=== PATIENT | female | born 1975 | race Caucasian/White ===

== ENCOUNTER 2018-06-12 02:47 | Emergency (ER) | payer BC ==
[~2018-06-12] VITALS: Ht 167.6 cm; Wt 71.7 kg
[2018-06-12 03:11] VITALS: BP 109/70
[2018-06-12] MEDS ORDERED: PSEUDOEPHEDRINE60 MG PO (03:15)
[2018-06-12] MEDS ORDERED: AMOXICILLIN500 MG ORAL (03:15)
--- NOTE | 2018-06-12 03:15 | Emergency Room Report ---
History of Present Illness General Chief Complaint: Earache Source: Patient Present Illness HPI Is a 43-year-old female with no past medical history. She presents with left ear pain. She thought that a bug may have flew into her ear. Around 6 PM she felt something hit her ear. She have any issue until one to 2 AM when she woke with left ear pain. No cough or congestion. No fever chills but denies any other complaint. Pain is 7 out of 10. Nothing made it better. Nothing made it worse. Allergies: Coded Allergies: No Known Allergies (Unverified , 06/12/18) Patient History Past Medical History: see triage record, old chart reviewed Past Surgical History: none Pertinent Family History: none Social History: Denies: smoking Last Menstrual Period: 3 weeks ago Now: No Immunizations: other Reviewed Nursing Documentation: PMH: Agreed; PSxH: Agreed Nursing Documentation-PMH Past Medical History: No Stated History Review of Systems Eye: Denies: eye pain, blurred vision ENT: Reports: ear pain; Denies: nose congestion, throat swelling Respiratory: Denies: cough, shortness of breath Cardiovascular: Denies: chest pain, palpitations Gastrointestinal: Denies: abdominal pain, diarrhea, nausea, vomiting Musculoskeletal: Denies: back pain, joint pain Skin: Denies: rash Neurological: Denies: headache, numbness Endocrine: Denies: increased thirst, increased urine Hematologic/Lymphatic: Denies: easy bruising All Other Systems: negative except mentioned in HPI Physical Exam Vital Signs Date Time Temp Pulse Resp B/P (MAP) Pulse Ox O2 Delivery O2 Flow Rate FiO2 06/12/18 03:03 98.2 76 16 109/70 97 Room Air vitals normal Sp02 EP Interpretation: reviewed, normal General Appearance: well appearing, no apparent distress, alert Head: normocephalic, atraumatic Eyes: bilateral eye PERRL, bilateral eye EOMI ENT: hearing grossly normal, normal pharynx, other - Left ear: TM is bulging with effusion. No bugs or foreign delfina Neck: full range of motion, supple, no meningismus Respiratory: chest non-tender, lungs clear, normal breath sounds Cardiovascular #1: regular rate, rhythm, no murmur Gastrointestinal: normal bowel sounds, non tender, no mass, no organomegaly, no bruit, non-distended Musculoskeletal: back normal, gait/station normal, normal range of motion Psychiatric: mood/affect normal Skin: warm/dry Medical Decision Making Diagnostic Impression: Primary Impression: Acute otitis media with effusion of left ear ER Course Patient with otitis with effusion. No evidence of perforation or foreign body. We'll discharge home. Last Vital Signs Date Time Temp Pulse Resp B/P (MAP) Pulse Ox O2 Delivery O2 Flow Rate FiO2 06/12/18 03:03 98.2 76 16 109/70 97 Room Air Status: unchanged Disposition: HOME, SELF-CARE Condition: Stable Scripts Pseudoephedrine Hcl* (SUDAFED*) 60 Mg Tablet 60 MG PO Q6H, #30 TAB Prov: Aj Rodríguez MD 06/12/18 Amoxicillin* (AMOXIL*) 500 Mg Capsule 500 MG ORAL THREE TIMES A DAY, #21 CAP Prov: Aj Rodríguez MD 06/12/18 Referrals: NON PHYSICIAN (PCP) Patient Instructions: Otitis Media, Adult, [id number] Additional Instructions: Follow-up with your doctor in 7 days. Return if worse. Aj Rodríguez MD Jun 12, 2018 03:15
[2018-06-12 03:20] VITALS: BP 109/70
== END 2018-06-12 03:18 | disposition home or self-care (01) ==
LOC: EMR 03:11
DX: H65.192 Other acute nonsuppurative otitis media, left ear (principal)
CPT/HCPCS: 99283

== ENCOUNTER 2019-02-04 00:07 | Emergency (ER) | payer BC ==
[~2019-02-04] VITALS: Ht 167.6 cm; Wt 72.6 kg
[~2019-02-04 00:07] MED LIST: AMOXICILLIN500 MG ORAL; PSEUDOEPHEDRINE60 MG PO
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
[2019-02-04 00:57] VITALS: BP 117/81
[2019-02-04] MEDS ORDERED: IBUPROFEN600 MG ORAL (01:29)
[2019-02-04 01:45] VITALS: BP 115/80
--- NOTE | 2019-02-04 01:45 | NUR ---
ED Nurse Note: PT CLEARED TO BE D/C PER ERMD, PT DISCHARGE AND AFTERCARE INSTRUCTION PROVIDED W/ PRESCRIPTION, PT EDUCATION DONE VIA DISCUSSION AND HANDOUT, PT ADVISED TO FOLLOW UP WITH PCP OR RETURN TO ED IF CHANGES IN CONDITION, VSS, AMBULATORY W/ STEADY GAIT, LEFT W/ ALL BELONGINGS, accompanied by .
--- NOTE | 2019-02-04 10:46 | Diagnostic Imaging Report ---
Indication: Neck Pain Findings: 3 views of the cervical spine were obtained. There is narrowing of the C4-5 and C5-6 discs with minimal retrolisthesis and endplate spur formation. There is no malalignment concerning for acute injury and no evidence of an acute fracture. The open-mouth odontoid view is suboptimal without good visualization of the dens. IMPRESSION: No acute fracture with some limitations as above
--- NOTE | 2019-02-04 10:46 | Diagnostic Imaging Report ---
Indication: Pain Findings: 2 views of the left humerus were obtained. No acute fractures, malalignment, erosions or periostitis are identified. Bone mineralization is within normal limits. Soft tissues are unremarkable. Impression: No acute injury.
== END 2019-02-04 01:45 | disposition home or self-care (01) ==
LOC: EMR 00:52
DX: S16.1XXA Strain of muscle, fascia and tendon at neck level, initial encounter (principal); S40.022A Contusion of left upper arm, initial encounter; V03.10XA Pedestrian on foot injured in collision with car, pick-up truck or van in traffic accident, initial encounter; Y92.481 Parking lot as the place of occurrence of the external cause
CPT/HCPCS: 72040; 99284